=== PATIENT | male | born 1965 | race Caucasian/White ===

== ENCOUNTER 2023-11-04 15:02 | Inpatient (IN) | payer OTHER ==
[2023-11-04 16:51] VITALS: BMI 26.1
[2023-11-04] MEDS ORDERED: IBUPROFEN 400 MG TABLET (FP) PO PRN (18:25)
[2023-11-04] MEDS ORDERED: IBUPROFEN 600 MG TABLET (FP) PO PRN (18:25)
[2023-11-04] MEDS ORDERED: ACETAMINOPHEN 325 MG TABLET (FP) PO PRN (18:25)
[2023-11-04] MEDS ORDERED: guaiFENesin 600 MG TABLET.ER (FP) PO PRN (18:25)
[2023-11-04] MEDS ORDERED: MAG HYDROX/AL HYDROX/SIMETH 30 ML UNIT-DOSE CUP PO PRN (18:25)
[2023-11-04] MEDS ORDERED: hydrOXYzine PAMOATE 25 MG CAPSULE (FP) PO PRN (18:25)
[2023-11-04] MEDS ORDERED: NALOXONE (NARCAN) HCL 4 MG/0.1 ML SPRAY NS PRN (18:25)
[2023-11-04] MEDS ORDERED: NALOXONE HCL 0.4 MG/ML VIAL IM PRN (18:25)
[2023-11-04] MEDS ORDERED: LOPERAMIDE HCL 2 MG CAPSULE PO PRN (18:25)
[2023-11-04] MEDS ORDERED: MAGNESIUM HYDROX 2400MG/30ML ORAL SUSPENSION 30 ML CUP PO PRN (18:25)
[2023-11-04] MEDS ORDERED: DICYCLOMINE HCL 10 MG CAPSULE PO PRN (18:25)
[2023-11-04] MEDS ORDERED: BENZONATATE 200 MG CAPSULE PO PRN (18:25)
[2023-11-04] MEDS ORDERED: BENZOCAINE/MENTHOL (CHLORASEPTIC ) LOZENGE MM PRN (18:25)
[2023-11-04] MEDS ORDERED: POLYETHYLENE GLYCOL (HEALTHYLAX) 3350 17 GM PACKET PO PRN (18:25)
[2023-11-04] MEDS ORDERED: ONDANSETRON *ODT* 4 MG TABLET SL PRN (18:25)
[2023-11-04] MEDS ORDERED: BISMUTH SUBSALICYLATE 524 MG/30 ML PO PRN (18:25)
[2023-11-04] MEDS ORDERED: ALBUTEROL SO4 HFA INHALER IH PRN (18:37)
[2023-11-04] MEDS ORDERED: MELATONIN 5 MG TABLETS ONE (22:44)
[2023-11-04] MEDS: THIAMINE 100 MG TABLET PO SCH (22:47)
[2023-11-04] MEDS: predniSONE 20 MG TABLET (UD) PO SCH (22:47)
[2023-11-04] MEDS: MELATONIN 5 MG TABLETS PO SCH (22:47)
[2023-11-05] MEDS ORDERED: LORazepam 1 MG TABLET PO PRN (09:41)
[2023-11-05] MEDS ORDERED: methaDONE HCL 10 MG TABLET (FOR DETOX USE ONLY) ONE (10:21)
[2023-11-05] MEDS ORDERED: BUPRENORPHINE/NALOXONE 0.5 MG/0.125 MG FILM ONE (10:21)
[2023-11-05] MEDS ORDERED: cloNIDine HCL 0.1 MG TABLET ONE (10:21)
[2023-11-05] MEDS ORDERED: PRENATAL VITAMINS W/ FOLIC ACID TABLET (FP) PO ONE (10:22)
[2023-11-05] MEDS: PRENATAL VITAMINS W/ FOLIC ACID TABLET (FP) PO SCH (10:23)
[2023-11-05] MEDS: DOLUTEGRAVIR SODIUM 50 MG TABLET (NON-FORMULARY) PO SCH (10:23)
[2023-11-05] MEDS: EMTRICITABINE/TENOFOV ALAFENAM (DESCOVY) TABLET PO SCH (10:23)
[2023-11-05] MEDS: cloNIDine HCL 0.1 MG TABLET PO SCH (10:23)
[2023-11-05] MEDS: methaDONE HCL 10 MG TABLET (FOR DETOX USE ONLY) PO ONE (10:24)
[2023-11-05] MEDS: BUPRENORPHINE/NALOXONE 0.5 MG/0.125 MG FILM SL ONE ×2 (10:24→22:26)
[2023-11-05 10:31] LABS: HEMATOCRIT 41.9 % (35.4-49); HEMOGLOBIN 13.6 GM/dL (11.7-16.9); MCH 30.2 pg (25.7-33.7); MCHC 32.5 g/dl (32.0-35.9); MEAN CELL VOLUME 93.1 fl (80-96); MEAN PLT VOLUME 8.5 fl (7.5-11.1); PLATELET COUNT 567 10^3/uL (134-434); RDW 14.7 % (11.9-15.9); WHITE BLOOD COUNT 6.4 K/mm3 (4.0-10.0)
[2023-11-05] MEDS: UMECLIDINIUM/VILANTEROL (ANORO) 62.5/25 MCG INHALER IH SCH (10:33)
[2023-11-05 10:59] LABS: CHLORIDE 110 mmol/L (98-107); POTASSIUM 5.4 mmol/L (3.5-5.1); SODIUM 143 mmol/L (136-145)
[2023-11-05 11:01] LABS: CALCIUM 9.4 mg/dL (8.5-10.1)
[2023-11-05 11:02] LABS: ALBUMIN 3.4 g/dl (3.4-5.0); ANION GAP 7 mmol/L (4-13); BLOOD UREA NITROGEN 8.7 mg/dL (7-18); CO2 27 mmol/L (21-32); GLUCOSE,RANDOM 109 mg/dL (74-106)
[2023-11-05 11:05] LABS: CREATININE 1.1 mg/dL (0.55-1.3); SGOT/AST 16 U/L (15-37); SGPT/ALT 15 U/L (13-61)
[2023-11-05 11:06] LABS: BILIRUBIN,TOTAL 0.4 mg/dL (0.2-1)
[2023-11-05 11:07] LABS: TOT PROT 7.2 g/dl (6.4-8.2)
[2023-11-05 11:08] LABS: ALK PHOS 87 U/L (45-117)
[2023-11-05] MEDS: LORazepam 2 MG TABLET PO SCH (17:04)
[2023-11-06 09:17] LABS: POTASSIUM 4.7 mmol/L (3.5-5.1)
[2023-11-06 09:19] LABS: CALCIUM 9.2 mg/dL (8.5-10.1)
[2023-11-06 09:23] LABS: CREATININE 1.1 mg/dL (0.55-1.3)
[2023-11-06] MEDS: BUPRENORPHINE/NALOXONE 0.5 MG/0.125 MG FILM SL SCH (10:13)
[2023-11-07] MEDS: LORazepam 1 MG TABLET PO SCH (05:54)
[2023-11-07] MEDS: BUPRENORPHINE/NALOXONE 2 MG/0.5 MG FILM PACKET SL SCH (10:06)
[2023-11-07] MEDS: methaDONE HCL 10 MG TABLET (FOR DETOX USE ONLY) PO ONE (10:06)
[2023-11-07] MEDS: traZODone HCL 50 MG TABLET (FP) PO SCH (22:14)
[2023-11-07] MEDS: METHOCARBAMOL 500 MG TABLET PO PRN (22:14)
[2023-11-08] MEDS ORDERED: LORazepam 0.5 MG TABLET PO PRN
[2023-11-08] MEDS: LORazepam 0.5 MG TABLET PO SCH (05:37)
[2023-11-08] MEDS: BUPRENORPHINE/NALOXONE 4 MG/1 MG FILM PACKET SL SCH (10:14)
[2023-11-08] MEDS: QUEtiapine FUMARATE 100 MG TABLET (FP) PO SCH (22:14)
[2023-11-09] MEDS: LORazepam 0.5 MG TABLET PO ONE (05:33)
[2023-11-09] MEDS: BUPRENORPHINE/NALOXONE 8 MG/2 MG FILM PACKET SL SCH (10:16)
[2023-11-09] MEDS: methaDONE HCL 10 MG TABLET (FOR DETOX USE ONLY) PO ONE (10:17)
[2023-11-10 06:12] VITALS: RESP 18
[2023-11-10] MEDS: BUPRENORPHINE/NALOXONE 8 MG/2 MG FILM PACKET SL SCH (10:13)
[2023-11-10 13:06] VITALS: BP 132/75; PULSE 56; TEMP 97.4
== END 2023-11-10 13:48 | disposition other institution (70) | DRG 773 ==
LOC: YASAS 15:02 → Y3N 11-05 11:10
PROVIDERS: ADMIT Surgery; ATTEND Surgery
PROC: HZ2ZZZZ Detoxification Services for Substance Abuse Treatment (ICD-10-PCS; principal; 2023-11-05)
DX: F11.23 Opioid dependence with withdrawal (principal); F10.230 Alcohol dependence with withdrawal, uncomplicated; F13.20 Sedative, hypnotic or anxiolytic dependence, uncomplicated; F17.210 Nicotine dependence, cigarettes, uncomplicated; F19.24 Other psychoactive substance dependence with psychoactive substance-induced mood disorder; F32.9 Major depressive disorder, single episode, unspecified; Z21 Asymptomatic human immunodeficiency virus [HIV] infection status; E87.5 Hyperkalemia; J44.9 Chronic obstructive pulmonary disease, unspecified; Z79.899 Other long term (current) drug therapy
CPT/HCPCS: 36415; 80048; 80053; 80305; 80307; 85027; 86780; 87811; 93005; 93010

== ENCOUNTER 2023-11-10 14:03 | Inpatient (IN) | payer OTHER ==
[2023-11-10] MEDS ORDERED: NICOTINE POLACRILEX 2 MG GUM BUC PRN (16:16)
[2023-11-10] MEDS ORDERED: guaiFENesin 600 MG TABLET.ER (FP) PO PRN (16:16)
[2023-11-10] MEDS ORDERED: BENZOCAINE/MENTHOL (CHLORASEPTIC ) LOZENGE MM PRN (16:16)
[2023-11-10] MEDS ORDERED: BENZONATATE 200 MG CAPSULE PO PRN (16:16)
[2023-11-10] MEDS ORDERED: ACETAMINOPHEN 325 MG TABLET (FP) PO PRN (16:16)
[2023-11-10] MEDS ORDERED: IBUPROFEN 400 MG TABLET (FP) PO PRN (16:16)
[2023-11-10] MEDS ORDERED: hydrOXYzine PAMOATE 25 MG CAPSULE (FP) PO PRN (16:16)
[2023-11-10] MEDS ORDERED: LOPERAMIDE HCL 2 MG CAPSULE PO PRN (16:16)
[2023-11-10] MEDS ORDERED: IBUPROFEN 600 MG TABLET (FP) PO PRN (16:16)
[2023-11-10] MEDS ORDERED: MAG HYDROX/AL HYDROX/SIMETH 30 ML UNIT-DOSE CUP PO PRN (16:16)
[2023-11-10] MEDS: MELATONIN 5 MG TABLETS PO SCH (21:55)
[2023-11-10] MEDS: THIAMINE 100 MG TABLET PO SCH (21:55)
[2023-11-10] MEDS: METHOCARBAMOL 500 MG TABLET PO PRN (21:56)
[2023-11-11] MEDS: PRENATAL VITAMINS W/ FOLIC ACID TABLET (FP) PO SCH (05:38)
[2023-11-11] MEDS: NICOTINE 14 MG/24 HOURS TOPICAL PATCH TD SCH (05:38)
[2023-11-11] MEDS: UMECLIDINIUM/VILANTEROL (ANORO) 62.5/25 MCG INHALER IH SCH (11:03)
[2023-11-11] MEDS: BUPRENORPHINE/NALOXONE 8 MG/2 MG FILM PACKET SL SCH (13:23)
[2023-11-11] MEDS: DOLUTEGRAVIR SODIUM 50 MG TABLET (NON-FORMULARY) PO SCH (13:36)
[2023-11-11] MEDS: EMTRICITABINE/TENOFOV ALAFENAM (DESCOVY) TABLET PO SCH (13:36)
[2023-11-11] MEDS: QUEtiapine FUMARATE 100 MG TABLET (FP) PO SCH (22:03)
[2023-11-11] MEDS: traZODone HCL 50 MG TABLET (FP) PO SCH (22:03)
[2023-11-12] MEDS ORDERED: ALBUTEROL SO4 HFA INHALER IH PRN (12:40)
[2023-11-16] MEDS: EMTRICITABINE/TENOFOV ALAFENAM (DESCOVY) TABLET PO SCH (07:02)
[2023-11-16] MEDS: DOLUTEGRAVIR SODIUM 50 MG TABLET (NON-FORMULARY) PO SCH (07:02)
[2023-11-17] MEDS: SENNOSIDES 8.8 MG/5 ML SYRUP PO PRN (21:29)
[2023-11-17] MEDS: BUPRENORPHINE/NALOXONE 8 MG/2 MG FILM PACKET SL SCH (21:38)
[2023-11-17] MEDS: BUPRENORPHINE/NALOXONE 2 MG/0.5 MG FILM PACKET SL SCH (21:38)
[2023-11-18] MEDS: EMTRICITABINE/TENOFOV ALAFENAM (DESCOVY) TABLET PO SCH (06:17)
[2023-11-18] MEDS: NICOTINE 14 MG/24 HOURS TOPICAL PATCH TD SCH (10:03)
[2023-11-18] MEDS: PRENATAL VITAMINS W/ FOLIC ACID TABLET (FP) PO SCH (10:03)
[2023-11-18] MEDS: MAGNESIUM HYDROX 2400MG/30ML ORAL SUSPENSION 30 ML CUP PO PRN (10:07)
[2023-11-19] MEDS: POLYETHYLENE GLYCOL (HEALTHYLAX) 3350 17 GM PACKET PO PRN (06:30)
[2023-11-19] MEDS: DOCUSATE SODIUM 100 MG CAPSULE (FP) PO PRN (06:30)
[2023-11-19] MEDS: DOLUTEGRAVIR SODIUM 50 MG TABLET (NON-FORMULARY) PO SCH (06:30)
[2023-11-23 07:17] VITALS: PULSE 67
[2023-11-24 06:54] VITALS: BP 137/76; RESP 16; TEMP 97
[2023-11-24] MEDS: NALOXONE (NYS OPIOID OVERDOSE PROGRAM) 4 MG/0.1 ML SPRAY NS PRN (10:43)
== END 2023-11-24 11:48 | disposition home or self-care (01) | DRG 772 ==
LOC: YASAS 14:03 → Y3NR 14:05 → Y5N 11-13 12:50
PROVIDERS: ADMIT Psychiatry & Neurology Pain Medicine; ATTEND Psychiatry & Neurology Pain Medicine
PROC: HZ42ZZZ Group Counseling for Substance Abuse Treatment, Cognitive-Behavioral (ICD-10-PCS; principal; 2023-11-10)
DX: F11.20 Opioid dependence, uncomplicated (principal); F13.20 Sedative, hypnotic or anxiolytic dependence, uncomplicated; F17.210 Nicotine dependence, cigarettes, uncomplicated; F19.24 Other psychoactive substance dependence with psychoactive substance-induced mood disorder; F41.9 Anxiety disorder, unspecified; F32.A Depression, unspecified; Z21 Asymptomatic human immunodeficiency virus [HIV] infection status; J44.9 Chronic obstructive pulmonary disease, unspecified; K59.00 Constipation, unspecified; Z85.820 Personal history of malignant melanoma of skin
CPT/HCPCS: 87811